=== PATIENT | male | born 1950 | race Caucasian/White ===

== ENCOUNTER 2023-04-07 14:04 | Emergency (ER) | payer OTHER, SELFPAY ==
[2023-04-07 14:10] VITALS: BP 125/64; PULSE 103; RESP 16; TEMP 36.7; O2SAT 96; BMI 29.0
--- NOTE | 2023-04-07 14:25 | CTR_ITS ---
PROCEDURE INFORMATION: Exam: CT Abdomen And Pelvis With Contrast Exam date and time: 04/07/2023 3:57 PM Age: 72 years old Clinical indication: Abdominal pain; Localized; Lower; Additional info: Llq pain TECHNIQUE: Imaging protocol: Computed tomography of the abdomen and pelvis with contrast. Sagittal and coronal reformatted images were created and reviewed. Radiation optimization: All CT scans at this facility use at least one of these dose optimization techniques: automated exposure control; mA and/or kV adjustment per patient size (includes targeted exams where dose is matched to clinical indication); or iterative reconstruction. Contrast material: OMNI 350; Contrast volume: 100 ml; Contrast route: INTRAVENOUS (IV); REPORTING DATA: Count of CT and Cardiac NM exams in prior 12 months: This patient has received 0 known CTs and 0 known cardiac nuclear medicine studies in the 12 months prior to the current study. COMPARISON: No relevant prior studies available. RADIATION DOSE METRICS: Total DLP (mGy-cm): 836 FINDINGS: Lungs: Reticulonodular interstitial thickening and alveolar airspace disease in the right lower lobe suspicious for pneumonia. Pleural spaces: No pleural effusion. Heart: Visualized portions of the heart are mildly enlarged. Calcification of the mitral valve annulus. Liver: The liver is unremarkable. Gallbladder and bile ducts: The gallbladder is unremarkable. No biliary ductal dilatation. Pancreas: The pancreas is unremarkable. No pancreatic ductal dilatation. Spleen: Indeterminate hyperenhancing focus in the spleen measuring 2.0 x 1.5 cm (series 3, image 14). Adrenal glands: The right and left adrenal glands are unremarkable. Kidneys and ureters: The right kidney is unremarkable. Multiple subcentimeter hypodense foci in the left kidney that are too small to characterize, however likely represent small cysts. The right and left ureters are unremarkable. Stomach and bowel: No acute abnormality in the small bowel. Surgical sutures at the distal rectum. Scattered diverticula in the sigmoid colon. No evidence for diverticulitis. Fluid within the small bowel and colon without evidence of bowel wall thickening. Appendix: The appendix is visualized and is unremarkable. No findings to suggest acute appendicitis. Intraperitoneal space: No free intraperitoneal air. No ascites. No loculated fluid collections to suggest an abscess. Vasculature: Mild atherosclerotic changes in the visualized arteries. No evidence for aortic aneurysm or aortic dissection. Hepatic veins, portal veins, splenic vein, and SMV are patent. Lymph nodes: No lymphadenopathy. Urinary bladder: The bladder is unremarkable for the degree of distension. Reproductive: Unremarkable as visualized. Bones/joints: Degenerative changes in the spine, sacroiliac joints, and hips. Soft tissues: Small fat-containing umbilical hernia. No evidence for strangulation. No acute abnormality in the extra-abdominal soft tissues. CT/CT abdomen pelvis w con* [id number] IMPRESSION: 1. Reticulonodular interstitial thickening and alveolar airspace disease in the right lower lobe suspicious for pneumonia. Recommend followup chest imaging to insure resolution of these findings. 2. Fluid within the small bowel and colon without evidence of bowel wall thickening. This may reflect viral gastroenteritis in the appropriate clinical situation. 3. Scattered diverticula in the sigmoid colon. No evidence for diverticulitis. 4. Indeterminate hyperenhancing focus in the spleen. For patients without history of cancer, recommend follow-up MRI in 6-12 months. With history of cancer, recommend evaluation with non-emergent PET vs. MRI vs. biopsy. 5. Incidental/nonacute findings are listed in the report. COMMENTS: Consistent with the [employer]'s Incidental Findings Committee white paper (J [employer] Tha Radiol 2018): Any incidental renal lesion less than 1 cm or classified as too small to characterize, or any incidental cystic renal lesion characterized as simple-appearing, is likely benign. No follow-up imaging is recommended for these lesions per consensus recommendations based on imaging criteria.
--- NOTE | 2023-04-07 14:26 | ED_ITS ---
HPI - Abdominal Pain 2 General: Chief Complaint: Abdominal Pain Stated Complaint: abd pain lower right side Time Seen by Provider: 04/07/23 14:11 Source: patient Mode of arrival: ambulatory Limitations: no limitations History of Present Illness: 72-year-old male states been having abdo betito pain over the last 3 days states it has been a constant pain mainly his lower abdomen left lower quadrant states pain sharp in nature rates it a 5 out of 10 currently had some mild diarrhea denies any vomiting denies any worsening improving factors. Denies any fevers. Patient states he is also had a cough he was diagnosed bronchitis little over 2 weeks ago he finished a Z-Derick back then still continue to have a slight cough denies any shortness of breath Associated Symptoms: Denies chills, diarrhea, dysuria, fever(s), nausea and vomiting Review of Systems 2 Const: Denies: fever(s), chills, body aches or change in appetite ENMT: Denies: throat pain or dental pain Card: Denies: chest pain Resp: Reports: non-productive cough; Denies: dyspnea GI: Reports: abdominal pain; Denies: nausea, vomiting or diarrhea : Denies: dysuria Musc: Denies: neck pain or back pain Skin/Breast: Denies: rash Neuro: Denies: headache(s) Physical Exam 2 Const: COMMON NORMALS: no acute distress, patient oriented x3 and healthy appearing HENMT: COMMON NORMALS: normocephalic and atraumatic HEAD & SCALP: n ormocephalic and atraumatic Eye: COMMON NORMALS: Equal, round and reactive pupils present and EOMs intact bilaterally PUPIL: Yes Equal, round and reactive pupils present Neck/C-Spine: COMMON NORMALS: full ROM and supple Chest: COMMONS NORMALS: normal inspection of the chest Resp: COMMON NORMALS: normal respiratory effort, No retractions, No use of accessory muscles and clear to auscultation bilaterally AUSCULTATION: clear to auscultation bilaterally Cardio: COMMON NORMALS: regular rate, regular rhythm and No murmurs present (Cardio) RATE: regular rate RHYTHM: regular rhythm GI: COMMON NORMALS: Normal to inspection, nondistended, normoactive bowel sounds present, Soft to palpation and no masses PALPATION: Yes Soft to palpation and Yes Tenderness to palpation present (GI) Details: LLQ Extremity: COMMON NORMALS: normal to inspection and full ROM Neuro: COMMON NORMALS: patient oriented x3, moves all extremities and no focal motor deficits Psych: COMMON NORMALS: mental status grossly normal, Normal thought process present and cooperative THOUGHT PROCESS: Normal thought process present Skin: COMMON NORMALS: no rashes or lesions noted and no wounds GENERAL SKIN EXAM: no rashes or lesions noted Course 2 Vital Signs: Vital signs: Vital Signs Temperature 98.0 F 04/07/23 14:10 Pulse Rate 103 H 04/07/23 14:10 Respiratory Rate 16 04/07/23 14:10 Blood Pressure 163/81 04/07/23 14:43 Pulse Oximetry 96 04/07/23 14:43 Oxygen Delivery Me thod Room Air 04/07/23 14:10 MDM - Abdominal Pain Medical Decision Making Patient presents with abdominal pain he is also had a cough CT shows a left lower lobe pneumonia no acute findings in abdomen he is in no distress here we will place him on doxycycline he is to follow-up with PCP and return if worsening. Medical Records I reviewed the patient's medical records. Lab Data I reviewed the patient's lab results. 04/07/23 14:21 04/07/23 14:21 Labs/Radiology: Radiology Impressions Abdomen/Pelvis CT 04/07/23 14:25 IMPRESSION: 1. Reticulonodular interstitial thickening and alveolar airspace disease in the right lower lobe suspicious for pneumonia. Recommend followup chest imaging to insure resolution of these findings. 2. Fluid within the small bowel and colon without evidence of bowel wall thickening. This may reflect viral gastroenteritis in the appropriate clinical situation. 3. Scattered diverticula in the sigmoid colon. No evidence for diverticulitis. 4. Indeterminate hyperenhancing focus in the spleen. For patients without history of cancer, recommend follow-up MRI in 6-12 months. With history of cancer, recommend evaluation with non-emergent PET vs. MRI vs. biopsy. 5. Incidental/nonacute findings are listed in the report. COMMENTS: Consistent with the [employer]'s Incidental Findings Committee white paper (J Am Tha Radiol 2018): Any incidental renal lesion less than 1 cm or classified as too small to characterize, or any incidental cystic renal lesion characterized as simple-appearing, is likely benign. No follow-up imaging is recommended for these lesions per consensus recommendations based on imaging criteria. ADDENDUM: 04/07/23 [id number] Urgent results were discussed with JOANNE Mansfield on 04/07/2023 at 4:41 PM DIRECTOR HOME HE[employer]. Laboratory Results WBC 13.43 10^3/uL (3.29-11.43) H 04/07/23 14:21 RBC 4.61 10^6/uL (3.85-5.65) 04/07/23 14:21 Hgb 13.60 g/dL (11.27-16.99) 04/07/23 14:21 Hct 42.7 % (37-53) 04/07/23 14:21 MCV 92.6 fl (82-101) 04/07/23 14:21 MCH 29.5 pg (27-33) 04/07/23 14:21 MCHC 31.9 g/dL (30-55) 04/07/23 14:21 RDW 13.2 % (12.1-15.1) 04/07/23 14:21 Plt Count 167 10^3/cmm (157-399) 04/07/23 14:21 MPV 10.6 fL (7.4-10.4) H 04/07/23 14:21 Neut % (Auto) 80.6 % 04/07/23 14:21 Lymph % (Auto) 10.5 % 04/07/23 14:21 Mchenry % (Auto) 7.4 % 04/07/23 14:21 Eos % (Auto) 0.3 % 04/07/23 14:21 Baso % (Auto) 0.5 % 04/07/23 14:21 Neut # (Auto) 10.81 10^3/uL (1.8-7.7) H 04/07/23 14:21 Lymph # (Auto) 1.4 10^3/uL (0.8-4.8) 04/07/23 14:21 Mchenry # (Auto) 1.0 10^3/uL (0.2-0.9) H 04/07/23 14:21 Eos # (Auto) 0.0 10^3/uL (0.0-0.8) 04/07/23 14:21 Baso # (Auto) 0.1 10^3/uL (0.0-0.1) 04/07/23 14:21 Nucleated RBC % (auto) 0 % 04/07/23 14:21 Nucleated RBCs # 0.0 /100WBC 04/07/23 14:21 Sodium 133 mmol/L (136-145) L 04/07/23 14:21 Potassium 4.0 mmol/L (3.5-5.1) 04/07/23 14:21 Chloride 98 mmol/L (98-107) 04/07/23 14:21 Carbon Dioxide 24 mmol/L (22-29) 04/07/23 14:21 Anion Gap 15.0 (5-19) 04/07/23 14:21 BUN 19 mg/dL (8-23) 04/07/23 14:21 Creatinine 1.1 mg/dL (0.7-1.2) 04/07/23 14:21 GFR Calculation Not Reportable 04/07/23 14:21 Glucose 141 mg/dL (65-115) H 04/07/23 14:21 Calculated Osmolality 281 mOsm/kg (285-295) L 04/07/23 14:21 Calcium 9.2 mg/dL (8.5-10.5) 04/07/23 14:21 Total Bilirubin 1.6 mg/dL (0.15-1.2) H 04/07/23 14:21 AST 21 U/L (0-40) 04/07/23 14:21 ALT 17 U/L (0-41) 04/07/23 14:21 Alkaline Phosphatase 74 U/L (40-130) 04/07/23 14:21 Total Protein 6.8 g/dL (6.6-8.7) 04/07/23 14:21 Albumin 3.8 g/dL (3.5-5.2) 04/07/23 14:21 Globulin 3.0 g/dL (1.3-4.6) 04/07/23 14:21 Lipase 15 U/L (13-60) 04/07/23 14:21 All radiology interpretation(s) finalized by discharge Discharge Plan Discharge Patient Disposition: Home Clinical Impression: Pneumonia, Abdominal pain Condition: Stable Prescriptions: New doxycycline hyclate 100 mg tablet 100 mg PO BID 7 Days Qty: 14 0RF No Action cetirizine 10 mg Tablet 10 mg PO DAILY omeprazole 20 mg Capsule,Delayed Release(Dr/Ec) 20 mg PO DAILY lisinopril 40 mg Tablet 40 mg PO DAILY Vitamin D3 50 mcg (2,000 unit) Capsule 50 mcg PO DAILY Discharge Orders: Discharge ED (Routine); Ordered 04/07/23 Ordered By: Joanne Bell Discharge Diet: Advance as tolerated Discharge Activity: Resume usual activity Patient Instructions: Acute Abdominal Pain (ED), Abdominal Pain (ED), Pneumonia (ED) Activity Restrictions/Additional Instructions: CT did show an enhancing area in the spleen that could be a lesion need to follow-up with PCP for further workup Coding Level of Care Code ED 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
[2023-04-07 14:43] VITALS: BP 163/81; O2SAT 96
[2023-04-07 14:45] LABS: Basophils # 0.1 10^3/uL (0.0-0.1); Basophils % 0.5 %; Eosinophils % 0.3 %; Hematocrit 42.7 % (37-53); Lymphocytes # 1.4 10^3/uL (0.8-4.8); Lymphocytes % 10.5 %; Mean Corpuscular HGB Conc 31.9 g/dL (30-55); Mean Corpuscular Hemoglobin 29.5 pg (27-33); Mean Corpuscular Volume 92.6 fl (82-101); Mean Platelet Volume 10.6 fL (7.4-10.4); Monocytes % 7.4 %; Neutrophils # 10.81 10^3/uL (1.8-7.7); Neutrophils % 80.6 %; Nucleated Red Blood Cells % 0 %; Platelet Count 167 10^3/cmm (157-399); Red Blood Count 4.61 10^6/uL (3.85-5.65); Red Cell Distribution Width 13.2 % (12.1-15.1); White Blood Count 13.43 10^3/uL (3.29-11.43)
[2023-04-07] MEDS: sodium chloride 0.9% 1,000 ML 999 ML IV (15:08)
[2023-04-07 15:16] LABS: Alanine Aminotransferase 17 U/L (0-41); Albumin Level 3.8 g/dL (3.5-5.2); Alkaline Phosphatase 74 U/L (40-130); Aspartate Amino Transferase 21 U/L (0-40); Blood Urea Nitrogen 19 mg/dL (8-23); Calcium 9.2 mg/dL (8.5-10.5); Carbon Dioxide 24 mmol/L (22-29); Chloride 98 mmol/L (98-107); Glucose 141 mg/dL (65-115); Lipase 15 U/L (13-60); Osmolality Calculated 281 mOsm/kg (285-295); Sodium 133 mmol/L (136-145); Total Bilirubin 1.6 mg/dL (0.15-1.2); Total Protein 6.8 g/dL (6.6-8.7)
[2023-04-07] MEDS: iohexol 350 mg/mL 500 mL Btl (per mL) IV (16:01)
[2023-04-07] MEDS: morphine 4 mg/mL SDV 1 mL IVP (16:29)
[2023-04-07] MEDS: ondansetron 2 mg/ML SDV 2 mL 4 MG IVP (16:30)
--- NOTE | 2023-04-07 16:40 | XRR_ITS ---
PROCEDURE INFORMATION: Exam: XR Chest Exam date and time: 04/07/2023 4:44 PM Age: 72 years old Clinical indication: Cough TECHNIQUE: Imaging protocol: Radiologic exam of the chest. Views: 1 view. COMPARISON: CT abdomen pelvis w con* [id number] 04/07/2023 3:57 PM FINDINGS: Lungs: Right lower lobe airspace disease suspicious for pneumonia, similar to the prior CT scan of the abdomen/pelvis. Pleural spaces: No pleural effusion. No pneumothorax. Heart/Mediastinum: Stable mild enlargement of the cardiac silhouette. Mediastinal contours are unremarkable. Vasculature: Vascular calcifications in the aorta. Bones/joints: Unremarkable for age. XR/XR chest 1V portable [id number] IMPRESSION: 1. Right lower lobe airspace disease suspicious for pneumonia, similar to the prior CT scan of the abdomen/pelvis. Recommend followup chest imaging to insure resolution of these findings. 2. Incidental/nonacute findings are listed in the report.
[2023-04-07 17:06] VITALS: O2SAT 96
== END 2023-04-07 17:08 | disposition home or self-care (01) ==
PROVIDERS: Emergency Provider Emergency Medicine
DX: J18.9 Pneumonia, unspecified organism (principal); R10.32 Left lower quadrant pain
CPT/HCPCS: 71045; 74177; 80053; 83690; 85025; 96374; 96375; 99285; J2270; J2405; J7030; Q9967